=== PATIENT | male | born 1990 | race Caucasian/White ===

== ENCOUNTER 2016-08-15 11:22 | Emergency (ER) | payer BC, OTHER ==
[2016-08-15 11:38] VITALS: TEMP 97.5
--- NOTE | 2016-08-15 13:05 | EDPHY ---
H & P Stated Complaint: r foot laceration HPI/ROS: Chief complaint: Right foot laceration History of present illness: 26-year-old male presents to the emergency department for evaluation treatment of a right foot laceration. Patient was holding a glass when it broke and fell coming the outer aspect of his right foot. Minimal pain. Bleeding controlled with application of a dressing. Does not believe foreign bodies got into the wound. No report of abnormal coolness or paresthesias in the foot. He feels he can still move the digits of the foot and the ankle without difficulty. He is ambulating well. His tetanus is up-to- date. - Personal History Current Tetanus/Diphtheria Vaccine: Yes Current Tetanus Diphtheria and Acellular Pertussis (TDAP): Yes - Medical/Surgical History Hx Asthma: No Hx Chronic Respiratory Disease: No Hx Diabetes: No Hx Cardiac Disease: No Hx Renal Disease: No Hx Cirrhosis: No Hx Alcoholism: No Hx HIV/AIDS: No Hx Splenectomy or Spleen Trauma: No Other PMH: med hx-none. surg-none - Social History Smoking Status: Never smoked - Physical Exam Exam: General appearance: Alert, nontoxic Skin: There is a 4 cm laceration, vertically oriented, the lateral aspect of the right foot. Inspection does not reveal foreign bodies or deep structure injury. Musculoskeletal: Patient is moving all digits in his right foot without difficulty. He is able to invert and cherie his foot well. He is moving the ankle in all [place] without difficulty. Vascular exam: Normal pulses and capillary refill in the foot Neurologic exam: The patient has normal sensation and motor function distal to the injury. Constitutional: Initial Vital Signs Temperature (C) 36.4 C 08/15/16 11:36 Heart Rate 81 08/15/16 11:36 Respiratory Rate 18 08/15/16 11:36 Blood Pressure 126/77 H 08/15/16 11:36 O2 Sat (%) 95 08/15/16 11:36 O2 Delivery Mode Room Air Allergies/Adverse Reactions: No Known Allergies Allergy (Verified 09/21/15 17:37) Home Medications: Medication Instructions Recorded Cephalexin [Keflex] 500 mg PO QID #28 cap 09/21/15 Medical Decision Making Procedures: Procedure: Laceration repair. Verbal consent was obtained from the patient. The 4 cm laceration on the right foot was anesthetized in the usual fashion. The wound was irrigated, draped and explored to its base with a gloved finger. There were no deep structures involved. No tendon injury was identified. The wound was repaired with 4 0 Prolene, 7 simple interrupted sutures. The wound repair was simple. The procedure was performed by myself. Procedure: Splint placement. A postop shoe was applied. After application of the splint I returned and re- examined the patient. The splint was adequately immobilizing the joint and distal to the splint the patient's circulation and sensation was intact. ED Course/Re-evaluation: Patient seen under the supervision of my secondary supervising physician Dr. Baldemar Torres. Patient presents to the emergency department for evaluation of a right foot laceration. The foot appears to be neurovascularly intact. He has good musculoskeletal control of it. The wound is explored to its base, I do not appreciate foreign bodies or deep structure injury. It is repaired. Dressed. He is placed in a postop shoe. He is referred to podiatry for recheck. Home care is discussed. Return precautions are given. Patient voiced understanding and agreement with plan. Differential Diagnosis: Included but not limited to laceration, foreign body contamination, deep structure injury Departure - Departure Disposition: Home, Routine, Self-Care Clinical Impression: Laceration Condition: Good Instructions: Laceration (ED), Care For Your Stitches (ED), Acute Wound Care ( ED) Additional Instructions: Follow-up with Podiatry next week for recheck Stitches to be removed in 10-12 days If symptoms worsen or new symptoms develop return to the emergency department for recheck Referrals: NONE *PRIMARY CARE P,. [Primary Care Provider] - As per Instructions Chang Willard DPM [Doctor of Podiatric Medicine] - As per Instructions
[2016-08-15 13:16] VITALS: BP 117/80; PULSE 55; RESP 16; O2SAT 96
== END 2016-08-15 13:16 | disposition home or self-care (01) ==
PROC: 0HQMXZZ Repair Right Foot Skin, External Approach (ICD-10-PCS; principal; 2016-08-15)
DX: S91.311A Laceration without foreign body, right foot, initial encounter (principal); W25.XXXA Contact with sharp glass, initial encounter